=== PATIENT | female | born 1975 | race Caucasian/White ===

== ENCOUNTER 2016-07-31 20:46 | Emergency (ER) | payer OTHER ==
[2016-07-31 21:17] LABS: BASO # 0.1 K/mm3 (0.0-0.2); BASO % 1.3 % (0.0-1.0); EOS # 0.1 K/mm3 (0.0-0.50); EOS % 2.4 % (0.0-3.0); LARGE UNSTAINED CELL # 0.1 K/mm3 (0.0-0.4); LYMPH % 36.5 % (24.0-44.0); MEAN CORPUSCULAR HEMOGLOBIN 30.8 pg (27.0-33.0); MEAN CORPUSCULAR HGB CONC 32.7 g/dl (32.0-36.5); MEAN CORPUSCULAR VOLUME 94.1 fl (80.0-96.0); MONO # 0.2 K/mm3 (0.0-0.8); MONO % 4.3 % (0.0-5.0); NEUTROPHILS # 2.8 K/mm3 (1.8-7.7); NEUTROPHILS % 53.5 % (36.0-66.0); PLATELET COUNT, AUTOMATED 229 k/mm3 (150-450); RED CELL DISTRIBUTION WIDTH 15.7 % (11.5-14.5); WHITE BLOOD COUNT 5.2 K/mm3 (4.0-10.0)
[2016-07-31] MEDS ORDERED: ONDANSETRON 4MG/2ML VIAL (J2405) As Ordered ONE (21:43)
[2016-07-31 21:49] LABS: ALBUMIN/GLOBULIN RATIO 1.05 (1.00-1.93); ALKALINE PHOSPHATASE 96 U/L (45-117); ALT/SGPT 70 U/L (12-78); ANION GAP 8 MEQ/L (8-16); AST/SGOT 35 U/L (15-37); BILIRUBIN,DIRECT < 0.1 MG/DL (0.0-0.2); BILIRUBIN,TOTAL 0.2 MG/DL (0.2-1.0); BLOOD UREA NITROGEN 5 MG/DL (7-18); CALCIUM LEVEL 8.6 MG/DL (8.5-10.1); CARBON DIOXIDE LEVEL 27 MEQ/L (21-32); CHLORIDE LEVEL 110 MEQ/L (98-107); CREATININE FOR GFR 0.73 MG/DL (0.55-1.02); GLOMERULAR FILTRATION RATE > 60.0 (>58); GLUCOSE, FASTING 90 MG/DL (70-105); POTASSIUM SERUM 3.7 MEQ/L (3.5-5.1); SODIUM LEVEL 145 MEQ/L (136-145); TOTAL PROTEIN 7.8 GM/DL (6.4-8.2)
[2016-07-31] MEDS ORDERED: LORazepam 2 MG/ML VIAL (J2060) As Ordered ONE (21:58)
[2016-07-31] MEDS ORDERED: levETIRAcetam 500 MG/5 ML VIAL (KEPPRA IV)(J1953) As Ordered ONE (21:58)
[2016-07-31] MEDS ORDERED: KETOROLAC 30 MG/ML VIAL (J1885) As Ordered ONE (21:59)
--- NOTE | 2016-07-31 22:20 | REPUSA ---
HISTORY: Trauma TECHNIQUE: -CT head: Axial CT -CT C-spine: Contiguous noncontrast transaxial 2.[address] images were obtained through the cervical sp ine. Reconstructions were then created in the axial plane at 1.25 mm from which reformations were gen erated in the coronal and sagittal planes. COMPARISON: None FINDINGS: CT head: No acute intracranial hemorrhage or evidence of acute transcortical ischemia. No intra-axial or extra ction fluid collection, subfalcine herniation, midline shift, or hydrocephalus. The posterior fossa and brainstem are within normal limits. The osseous structures are intact. The pa ranasal sinuses, mastoid air cells, orbital compartments, and extra cranial soft tissues are unremark able. CT C-spine: No acute fracture, dislocation, or suspicious lesion. No evidence of significant arthritis and alignment is maintained without spondylolisthesis. There are no significant disc herniations or evidence of canal stenosis. The foramina, vertebral body, and dis c space heights are preserved. Odontoid process is intact. The neck soft tissues and airways are unremarkable with no hematoma or swelling. IMPRESSION: No acute intracranial or C-spine injury.
--- NOTE | 2016-08-01 00:41 | EDDOCDS ---
Physician Documentation [facility] Name: Genia Arita Age: 40 yrs Sex: Female : 1975 Arrival Date: 07/31/2016 Time: 20:46 Bed 3 Private MD: Disposition: 07/31/16 23:59 Discharged to Home/Self Care. Impression: Epilepsy and recurrent seizures, Fall (on) (from) unspecified stairs and steps. - Condition is Stable. - Prescriptions for Keppra 500 mg Oral Tablet - take 1 tablet by ORAL route every 12 hours; 20 tablet. - Medication Reconciliation, Local Pharmacy Hours form. - Follow up: Abbie Jack MD; When: Call to arrange an appointment; Reason: Continuance of care. - Problem is chronic. - Symptoms are unchanged. Historical: - Allergies: Cipro PO; Codeine Sulfate; SULFA (SULFONAMIDES); - Home Meds: 1. none - PMHx: Migraine Headaches; Seizure Disorder; - PSHx: Gall Bladder Removal; - Social history: Smoking status: Patient uses tobacco products, current every day smoker. No barriers to communication noted, The patient speaks fluent Macedonian, Speaks appropriately for age. - Family history: Not pertinent. - : The pt / caregiver states he / she is not on anticoagulants. Home medication list is obtained from. - Exposure Risk Screening:: None identified. ADMITTED ATTORNEYS: 07/31 20:51 LMP 07/21/2016 dsf Vital Signs: 20:53 BP 147 / 104 (auto/); dsf 20:54 BP 141 / 92 (auto/); dsf 20:54 Pulse 116 MON; Pulse Ox 96% ; dsf 20:55 BP 141 / 92 LA Supine (auto/reg); Pulse 103 MON; Resp 22 S; Temp 98.2(TE); Pulse Ox 98% cln on R/A; Weight 68.04 kg / 150 lbs (R); Height 5 ft. 0 in. (152.40 cm) (R); Pain 7/10; 20:55 Pulse 119 MON; Pulse Ox 92% ; dsf 21:00 BP 96 / 66 (auto/); dsf 21:01 Pulse 93 MON; Pulse Ox 97% ; dsf 21:15 BP 117 / 75 (auto/); dsf 21:16 Pulse 90 MON; Pulse Ox 98% ; dsf 21:45 BP 125 / 88 (auto/); dsf 21:46 Pulse 113 MON; Pulse Ox 93% ; dsf 22:00 BP 114 / 77 (auto/); dsf 22:01 Pulse 88 MON; Pulse Ox 97% ; dsf 22:15 BP 99 / 63 (auto/); dsf 22:15 Pulse 106 MON; Pulse Ox 96% ; dsf 22:30 BP 107 / 69 (auto/); dsf 22:31 Pulse 90 MON; Pulse Ox 99% ; dsf 22:57 BP 86 / 53 (auto/); dsf 22:58 Pulse 74 MON; Pulse Ox 95% ; dsf 23:07 BP 90 / 53 (auto/); dsf 23:08 Pulse 72 MON; Pulse Ox 97% ; dsf 23:12 BP 90 / 54 (auto/); dsf 23:12 Pulse 77 MON; Pulse Ox 96% ; dsf 08/01 00:21 BP 88 / 60; Pulse 75; Resp 18; Temp 96.9(TE); Pulse Ox 98% on R/A; shyam 00:32 BP 98 / 61; shyam 07/31 20:55 Body Mass Index 29.29 (68.04 kg, 152.40 cm) cln 07/31 23:07 Dr. Farrell notified of BP dsf 08/01 00:21 RN aware of BP. PT is sounds asleep on stretcher laying on right side shyam MDM: 07/31 20:59 Pug Mill Operator/Pulse Ox/q 15 min VS ordered. fg 20:59 IV Saline Lock ordered. fg 20:59 Oxygen at 4L/Min NC or Home dosage ordered. fg 20:59 Rhythm Strip to chart ordered. fg 21:00 Acetaminophen Level Ordered. EDMS 21:00 CBC with Diff Ordered. EDMS 21:00 Drug Eval Toxicology ED Only Ordered. EDMS 21:00 Liver Profile Ordered. EDMS 21:00 MED Profile Ordered. EDMS 21:00 Salicylate Level Ordered. EDMS 21:00 Thyroid Stimulating Hormone Ordered. EDMS 21:00 Urinalysis Ordered. EDMS 21:00 Chest, 1 View Ordered. EDMS 21:00 ECG WITH READING ER PHYS+CARDIAG ordered. EDMS 21:04 CT Head Without Contrast Ordered. EDMS 21:04 CT Spine,Cervical W/o Contrast Ordered. EDMS 21:07 ETHYL ALCOHOL (ETHANOL) Ordered. EDMS 21:47 levETIRAcetam (20mg/kg) 1000 mg IVPB at 400 mL/hr once over 15 mins; dilute in 100mL NS fg or D5W ordered. 21:47 LORazepam 0.5 mg IVP once ordered. fg 21:47 Ondansetron 4 mg IVP once ordered. fg 21:48 ketorolac 30 mg IVP once ordered. fg 21:48 Elbow, (AP\E\Lat) Ordered. EDMS 21:48 Shoulder (1 View) Ordered. EDMS 21:48 Spine. Lumbosacral, Complete Ordered. EDMS 22:39 Financial registration complete. zo 22:50 [facility] [place] Agreement was scanned into [employer] and attached to record. zo 23:11 NS 0.9% 1000 ml IV at bolus once ordered. fg Administered Medications: 21:48 Drug: Ondansetron 4 mg [ondansetron HCl 2 mg/mL intravenous solution (2 mL)] Route: cf2 IVP; Site: left antecubital; 22:08 Drug: levETIRAcetam (20mg/kg) 1000 mg [levetiracetam 500 mg/5 mL intravenous solution] dsf Route: IVPB; Rate: 400 mL/hr; Infused Over: 15 mins; Site: right hand; 22:34 Follow up: IV Status: Completed infusion; IV Intake: 100ml dsf 22:08 Drug: LORazepam 0.5 mg [lorazepam 2 mg/mL injection solution (0.25 mL)] Route: IVP; dsf Site: right hand; 22:08 Drug: ketorolac 30 mg [ketorolac 30 mg/mL (1 mL) injection solution (1 mL)] Route: IVP; dsf Site: right hand; 23:14 Drug: NS 0.9% 1000 ml [sodium chloride 0.9 % injection solution] Route: IV; Rate: dsf bolus; Site: right hand; 08/01 00:39 Follow up: IV Status: Infusion discontinued; IV Intake: 800ml dsf Signatures: Dispatcher [employer] EDMS Palak Lee Desiree, RN RN dsf Yudy Farrell MD MD Hilaria Nino RN cf2 The chart was reviewed and I authenticate all verbal orders and agree with the evaluation and treatment provided.Corrections: (The following items were deleted from the chart) 07/31 21:02 20:59 Accucheck ordered. fg dsf 21: 21:03 ETHYL ALCOHOL (ETHANOL)+LAB ordered. EDMS EDMS Attachments: 22:50 [facility] Payment Agreement zo MTDD
--- NOTE | 2016-08-01 00:41 | EDDOCDS ---
Nurse's Notes [facility] Name: Genia Arita Age: 40 yrs Sex: Female : 1975 Arrival Date: 07/31/2016 Time: 20:46 Bed 3 Private MD: Diagnosis: Epilepsy and recurrent seizures;Fall (on) (from) unspecified stairs and steps Presentation: 07/31 20:48 Presenting complaint: EMS states: son found pt unconscious laying on the patio outside. dsf According to son pt was tensing up after moved inside and was crying. ?seizure disorder. pt was incontinent of urine. c-collar in place. FSBS 86. Suicide/Homicide risk assessment- the patient denies having any suicidal and/or homicidal ideations and does not present with any other emotional, behavioral or mental health complaints. Status: Patient is not a reactor service operator or dependent. Transition of care: patient was not received from another setting of care. 20:48 Acuity: MESERET Level 3 dsf 20:48 Method Of Arrival: Ambulance dsf 20:48 Adult Sepsis Screening: Patient has new or worsening altered mentation (1 point). dsf Patient's respiratory rate is less than 22. Systolic blood pressure is greater than 100. Patient has a qSOFA score of 1- Negative Sepsis Screen. Triage Assessment: 20:51 General: Appears distressed, Behavior is crying. Pain: Location: all over body Pain dsf currently is 7 out of 10 on a pain scale. Quality of pain is described as sore. HIV screening NA for this visit Offered previously. Neurological: Level of Consciousness is awake, Oriented to person. EENT: eyes puffy. Cardiovascular: Capillary refill < 3 seconds Heart tones S1 S2 present Rhythm is sinus tachycardia No ectopy. Respiratory: Airway is patent Respiratory effort is even, unlabored, Respiratory pattern is regular, Breath sounds are clear bilaterally. GI: Abdomen is non- distended Bowel sounds present X 4 quads. Abd is soft and non tender X 4 quads. Derm: Skin is face flushed. 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 none - PMHx: Migraine Headaches; Seizure Disorder; - PSHx: Gall Bladder Removal; - Social history: Smoking status: Patient uses tobacco products, current every day smoker. No barriers to communication noted, The patient speaks fluent Portuguese, Speaks appropriately for age. - Family history: Not pertinent. - : The pt / caregiver states he / she is not on anticoagulants. Home medication list is obtained from. - Exposure Risk Screening:: None identified. Screenin/12 00:37 Screening information is obtained from the patient. Fall risk: No risks identified. dsf Assistance ADL's: requires no assistance with activities of daily living. Abuse/DV Screen: The patient / caregiver reports he/she is: not in a situation that causes fear, pain or injury. Nutritional screening: No deficits noted. Advance Directives: Currently, there is no health care proxy. home support is adequate. Assessment: 07/31 20:51 General: see triage nursing assessment . dsf 21:07 General: Appears distressed, Behavior is crying. Pain: Location: all over body. dsf Neurological: Level of Consciousness is awake, alert. Cardiovascular: Capillary refill < 3 seconds Rhythm is sinus rhythm No ectopy. Respiratory: Airway is patent Respiratory effort is even, unlabored, Respiratory pattern is regular, symmetrical. Derm: Skin is pink, warm & dry. 22:08 General: Behavior is crying. Neurological: Level of Consciousness is awake. dsf Cardiovascular: Rhythm is sinus rhythm No ectopy. Respiratory: Airway is patent Respiratory effort is even, unlabored, Respiratory pattern is regular, symmetrical. Derm: Skin is pink, warm & dry. face flushed. 23:15 Adult Sepsis Screening: The patient does not have new or worsening altered mentation. dsf Patient's respiratory rate is less than 22. Systolic blood pressure is greater than 100. Patient has a qSOFA score of 0- Negative Sepsis Screen. General: Appears to be sleeping. Cardiovascular: Rhythm is sinus rhythm No ectopy. Respiratory: Airway is patent Respiratory effort is even, unlabored, Respiratory pattern is regular, symmetrical. Derm: Skin is pink, warm & dry. 08/01 00:37 General: Appears in no apparent distress, Behavior is appropriate for age, sleepy . dsf Neurological: Level of Consciousness is awake, alert. Cardiovascular: Capillary refill < 3 seconds Rhythm is sinus rhythm No ectopy. Respiratory: Airway is patent Respiratory effort is even, unlabored, Respiratory pattern is regular, symmetrical. Derm: Skin is pink, warm & dry. Vital Signs: 07/31 20:53 BP 147 / 104 (auto/); dsf 20:54 BP 141 / 92 (auto/); dsf 20:54 Pulse 116 MON; Pulse Ox 96% ; dsf 20:55 BP 141 / 92 LA Supine (auto/reg); Pulse 103 MON; Resp 22 S; Temp 98.2(TE); Pulse Ox 98% cln on R/A; Weight 68.04 kg (R); Height 5 ft. 0 in. (152.40 cm) (R); Pain 7/; 20:55 Pulse 119 MON; Pulse Ox 92% ; dsf 21:00 BP 96 / 66 (auto/); dsf 21:01 Pulse 93 MON; Pulse Ox 97% ; dsf 21:15 BP 117 / 75 (auto/); dsf 21:16 Pulse 90 MON; Pulse Ox 98% ; dsf 21:45 BP 125 / 88 (auto/); dsf 21:46 Pulse 113 MON; Pulse Ox 93% ; dsf 22:00 BP 114 / 77 (auto/); dsf 22:01 Pulse 88 MON; Pulse Ox 97% ; dsf 22:15 BP 99 / 63 (auto/); dsf 22:15 Pulse 106 MON; Pulse Ox 96% ; dsf 22:30 BP 107 / 69 (auto/); dsf 22:31 Pulse 90 MON; Pulse Ox 99% ; dsf 22:57 BP 86 / 53 (auto/); dsf 22:58 Pulse 74 MON; Pulse Ox 95% ; dsf 23:07 BP 90 / 53 (auto/); dsf 23:08 Pulse 72 MON; Pulse Ox 97% ; dsf 23:12 BP 90 / 54 (auto/); dsf 23:12 Pulse 77 MON; Pulse Ox 96% ; dsf 08/01 00:21 BP 88 / 60; Pulse 75; Resp 18; Temp 96.9(TE); Pulse Ox 98% on R/A; shyam 00:32 BP 98 / 61; shyam 07/31 20:55 Body Mass Index 29.29 (68.04 kg, 152.40 cm) cln 07/31 23:07 Dr. Farrell notified of BP dsf 08/01 00:21 RN aware of BP. PT is sounds asleep on stretcher laying on right side shyam Vitals: 07/31 20:51 Log In Time N/A - ambulance arrival. dsf ED Course: 20:47 Patient visited by Mary Lim, Lamp Shade Joiner. ml3 20:47 Patient moved to Waiting ml3 20:47 Patient moved to 3 ml3 20:50 Triage Initiated dsf 20:56 Patient visited by Myrna Webber PCA. cln 20:56 Pt greeted and oriented to ED. Patient advised of names of staff involved in care, cln location of call hassan, wait times and NPO status. Patient has correct armband on for positive identification. Placed in gown. Bed in low position. Side rails up X2. Seizure precautions initiated. 20:58 Yudy Farrell MD is Attending Physician. fg 20:58 Patient visited by Yudy Farrell MD. fg 21:06 Acetaminophen Level Sent. dsf 21:06 CBC with Diff Sent. dsf 21:07 Liver Profile Sent. dsf 21:07 MED Profile Sent. dsf 21:07 Salicylate Level Sent. dsf 21:07 Thyroid Stimulating Hormone Sent. dsf 21:07 Inserted saline lock: 22 gauge in right hand The patient tolerated the procedure well. dsf 21:09 Patient visited by Ashley Oropeza RN. dsf 21:18 EKG done. (by ED staff). Reviewed by Yudy Farrell MD. cln 21:19 Patient visited by Myrna Webber PCA. cln 22:01 Patient visited by Hilaria Nino,ELICEO. cf2 22:09 Patient visited by Ashley Oropeza RN. dsf 22:38 CT Head Without Contrast Returned. EDMS 22:38 CT Spine,Cervical W/o Contrast Returned. EDMS 22:50 [facility] [place] was scanned into [employer] and attached to record. zo 22:51 Hilaria Nino,ELICEO is Primary Nurse. cf2 22:57 Patient visited by Hilaria Nino RN. cf2 23:15 Patient visited by Ashley Oropeza,ELICEO. dsf 23:58 Abbie Jack MD is Referral Physician. fg 08/01 00:32 Patient visited by Katie Fields PCA. shyam 00:37 The patient / caregiver is instructed regarding the plan of care and ED course. dsf 00:37 Discontinued lock intact, bleeding controlled, pressure dressing applied, No dsf redness/swelling at site. No procedures done that require assistance. Administered Medications: 07/31 21:48 Drug: Ondansetron 4 mg [ondansetron HCl 2 mg/mL intravenous solution (2 mL)] Route: cf2 IVP; Site: left antecubital; 22:08 Drug: levETIRAcetam (20mg/kg) 1000 mg [levetiracetam 500 mg/5 mL intravenous solution] dsf Route: IVPB; Rate: 400 mL/hr; Infused Over: 15 mins; Site: right hand; 22:34 Follow up: IV Status: Completed infusion; IV Intake: 100ml dsf 22:08 Drug: LORazepam 0.5 mg [lorazepam 2 mg/mL injection solution (0.25 mL)] Route: IVP; dsf Site: right hand; 22:08 Drug: ketorolac 30 mg [ketorolac 30 mg/mL (1 mL) injection solution (1 mL)] Route: IVP; dsf Site: right hand; 23:14 Drug: NS 0.9% 1000 ml [sodium chloride 0.9 % injection solution] Route: IV; Rate: dsf bolus; Site: right hand; 08/01 00:39 Follow up: IV Status: Infusion discontinued; IV Intake: 800ml dsf Intake: 07/31 22:34 IV: 100.00ml; Total: 100.00ml. dsf 08/01 00:39 IV: 800.00ml; Total: 900.00ml. dsf Order Results: Lab Order: Acetaminophen Level; SPEC'M 07/31/16 21:04 Test: ACETAMINOPHEN LEVEL; Value: < 2.0; Range: 10.0-30.0; Abnormal: Below low normal; Units: UG/ML; Status: F Lab Order: CBC with Diff; SPEC'M 07/31/16 21:04 Test: WHITE BLOOD COUNT; Value: 5.2; Range: 4.0-10.0; Units: K/mm3; Status: F Test: RED BLOOD COUNT; Value: 4.43; Range: 4.00-5.40; Units: M/mm3; Status: F Test: HEMOGLOBIN; Value: 13.6; Range: 12.0-16.0; Units: g/dl; Status: F Test: HEMATOCRIT; Value: 41.7; Range: 36.0-47.0; Units: %; Status: F Test: MEAN CORPUSCULAR VOLUME; Value: 94.1; Range: 80.0-96.0; Units: fl; Status: F Test: MEAN CORPUSCULAR HEMOGLOBIN; Value: 30.8; Range: 27.0-33.0; Units: pg; Status: F Test: MEAN CORPUSCULAR HGB CONC; Value: 32.7; Range: 32.0-36.5; Units: g/dl; Status: F Test: RED CELL DISTRIBUTION WIDTH; Value: 15.7; Range: 11.5-14.5; Abnormal: Above high normal; Units: %; Status: F Test: PLATELET COUNT, AUTOMATED; Value: 229; Range: 150-450; Units: k/mm3; Status: F Test: NEUTROPHILS %; Value: 53.5; Range: 36.0-66.0; Units: %; Status: F Test: LYMPH %; Value: 36.5; Range: 24.0-44.0; Units: %; Status: F Test: MONO %; Value: 4.3; Range: 0.0-5.0; Units: %; Status: F Test: EOS %; Value: 2.4; Range: 0.0-3.0; Units: %; Status: F Test: BASO %; Value: 1.3; Range: 0.0-1.0; Abnormal: Above high normal; Units: %; Status: F Test: LARGE UNSTAINED CELL %; Value: 2.0; Range: 0.0-4.0; Units: %; Status: F Test: NEUTROPHILS #; Value: 2.8; Range: 1.8-7.7; Units: K/mm3; Status: F Test: LYMPH #; Value: 2.0; Range: 1.5-4.5; Units: K/mm3; Status: F Test: MONO #; Value: 0.2; Range: 0.0-0.8; Units: K/mm3; Status: F Test: EOS #; Value: 0.1; Range: 0.0-0.50; Units: K/mm3; Status: F Test: BASO #; Value: 0.1; Range: 0.0-0.2; Units: K/mm3; Status: F Test: LARGE UNSTAINED CELL #; Value: 0.1; Range: 0.0-0.4; Units: K/mm3; Status: F Lab Order: Liver Profile; SPEC'M 07/31/16 21:04 Test: AST/SGOT; Value: 35; Range: 15-37; Units: U/L; Status: F Test: ALT/SGPT; Value: 70; Range: 12-78; Units: U/L; Status: F Test: ALKALINE PHOSPHATASE; Value: 96; Range: 45-117; Units: U/L; Status: F Test: BILIRUBIN,TOTAL; Value: 0.2; Range: 0.2-1.0; Units: MG/DL; Status: F Test: BILIRUBIN,DIRECT; Value: < 0.1; Range: 0.0-0.2; Units: MG/DL; Status: F Test: TOTAL PROTEIN; Value: 7.8; Range: 6.4-8.2; Units: GM/DL; Status: F Test: ALBUMIN; Value: 4.0; Range: 3.2-5.2; Units: GM/DL; Status: F Test: ALBUMIN/GLOBULIN RATIO; Value: 1.05; Range: 1.00-1.93; Status: F Lab Order: MED Profile; SPEC'M 07/31/16 21:04 Test: GLUCOSE, FASTING; Value: 90; Range: 70-105; Units: MG/DL; Status: F Test: BLOOD UREA NITROGEN; Value: 5; Range: 7-18; Abnormal: Below low normal; Units: MG/DL; Status: F Test: CREATININE FOR GFR; Value: 0.73; Range: 0.55-1.02; Units: MG/DL; Status: F Test: GLOMERULAR FILTRATION RATE; Value: > 60.0; Range: >58; Status: F Test: SODIUM LEVEL; Value: 145; Range: 136-145; Units: MEQ/L; Status: F Test: POTASSIUM SERUM; Value: 3.7; Range: 3.5-5.1; Units: MEQ/L; Status: F Test: CHLORIDE LEVEL; Value: 110; Range: 98-107; Abnormal: Above high normal; Units: MEQ/L; Status: F Test: CARBON DIOXIDE LEVEL; Value: 27; Range: 21-32; Units: MEQ/L; Status: F Test: ANION GAP; Value: 8; Range: 8-16; Units: MEQ/L; Status: F Test: CALCIUM LEVEL; Value: 8.6; Range: 8.5-10.1; Units: MG/DL; Status: F Test Note: ; Units are mL/min/1.73 m2 Chronic Kidney Disease Staging per NKF: Stage I & II GFR >=60 Normal to Mildly Decreased Stage III GFR 30-59 Moderately Decreased Stage IV GFR 15-29 Severely Decreased Stage V GFR <15 Very Little GFR Left ESRD GFR <15 on INSPECT[employer]CU[employer] Lab Order: Salicylate Level; SPEC'M 07/31/16 21:04 Test: SALICYLATE LEVEL; Value: 2.8; Range: 5.0-30.0; Abnormal: Below low normal; Units: MG/DL; Status: F Lab Order: Thyroid Stimulating Hormone; SPEC'M 07/31/16 21:04 Test: THYROID STIMULATING HORMONE; Value: 2.410; Range: 0.358-3.740; Units: uIU/ML; Status: F Lab Order: ETHYL ALCOHOL (ETHANOL); SPEC'M 07/31/16 21:04 Test: ETHYL ALCOHOL (ETHANOL); Value: 0.194; Range: 0.000-0.010; Abnormal: Above high normal; Units: %; Status: F Radiology Order: CT Head Without Contrast Test: CT Head Without Contrast REASON FOR EXAMINATION: fall, ams; ; HISTORY: Trauma; TECHNIQUE:; -CT head: Axial CT; -CT C-spine: Contiguous noncontrast transaxial 2.[address] images were obtained through the cervical sp; ine. Reconstructions were then created in the axial plane at 1.25 mm from which reformations were gen; erated in the coronal and sagittal planes.; COMPARISON: None; FINDINGS:; CT head:; No acute intracranial hemorrhage or evidence of acute transcortical ischemia. No intra-axial or extra; ction fluid collection, subfalcine herniation, midline shift, or hydrocephalus.; The posterior fossa and brainstem are within normal limits. The osseous structures are intact. The pa; ranasal sinuses, mastoid air cells, orbital compartments, and extra cranial soft tissues are unremark; able.; CT C-spine:; No acute fracture, dislocation, or suspicious lesion.; No evidence of significant arthritis and alignment is maintained without spondylolisthesis. There are; no significant disc herniations or evidence of canal stenosis. The foramina, vertebral body, and dis; c space heights are preserved. Odontoid process is intact.; The neck soft tissues and airways are unremarkable with no hematoma or swelling.; ; IMPRESSION:; No acute intracranial or C-spine injury.; ; Radiology Order: CT Spine,Cervical W/o Contrast Test: CT Spine,Cervical W/o Contrast REASON FOR EXAMINATION: fall; ; HISTORY: Trauma; TECHNIQUE:; -CT head: Axial CT; -CT C-spine: Contiguous noncontrast transaxial 2.[address] images were obtained through the cervical sp; ine. Reconstructions were then created in the axial plane at 1.25 mm from which reformations were gen; erated in the coronal and sagittal planes.; COMPARISON: None; FINDINGS:; CT head:; No acute intracranial hemorrhage or evidence of acute transcortical ischemia. No intra-axial or extra; ction fluid collection, subfalcine herniation, midline shift, or hydrocephalus.; The posterior fossa and brainstem are within normal limits. The osseous structures are intact. The pa; ranasal sinuses, mastoid air cells, orbital compartments, and extra cranial soft tissues are unremark; able.; CT C-spine:; No acute fracture, dislocation, or suspicious lesion.; No evidence of significant arthritis and alignment is maintained without spondylolisthesis. There are; no significant disc herniations or evidence of canal stenosis. The foramina, vertebral body, and dis; c space heights are preserved. Odontoid process is intact.; The neck soft tissues and airways are unremarkable with no hematoma or swelling.; ; IMPRESSION:; No acute intracranial or C-spine injury.; ; Outcome: 07/31 23:59 Discharge ordered by Provider. fg 08/01 00:37 Discharge Assessment: Patient awake, alert and oriented x 3. No cognitive and/or dsf functional deficits noted. Patient verbalized understanding of disposition instructions. patient administered narcotics - no. The following High Risk Discharge criteria are identified: None. Discharged to home via wheelchair, with son. Condition: stable. Discharge instructions given to patient, son Instructed on discharge instructions, follow up and referral plans. medication usage, Demonstrated understanding of instructions, medications, Pt was receptive of discharge instructions/ teaching. Prescriptions given X 1. CT Study completed. Property sent home with patient. 00:40 Patient left the ED. dsf Signatures: Dispatcher [employer] EDMS Mary Lim, Lamp Shade Joiner Unit ml3 Palak Lee Destiny, GIS PROGRAMMER GIS PROGRAMMER Ashley Jefferson,RN RN dsf Yudy Farrell MD MD fg Nichols, Crystal, GIS PROGRAMMER GIS PROGRAMMER Hilaria Duque,RN RN cf2 YASHIRA
--- NOTE | 2016-08-01 08:05 | REP ---
Clinical: Trauma/fall with back pain . Technique: AP, lateral, bilateral oblique, and coned-down views. Findings: Alignment and lordosis is maintained. The vertebral bodies including transverse process and spinous processes are intact and normal for age. There is no evidence for acute fracture / compression injury or subluxation. No evidence for spondylolysis or spondylolisthesis. Impression: Mild age-related changes. No acute fracture / compression injury or subluxation. Signed by Prudencio Olivier MD 08/01/2016 07:57 A
--- NOTE | 2016-08-01 08:07 | REP ---
Clinical: Chest pain . Comparison: None . Findings: The mediastinum and cardiac silhouette are stable and within normal limits for portable technique. The lung crane are clear without acute consolidation, effusion, or pneumothorax. Skeletal structures are intact. Impression: Normal portable chest x-ray Signed by Prudencio Olivier MD 08/01/2016 07:58 A
--- NOTE | 2016-08-01 08:09 | REP ---
Clinical: Pain . Technique: Single AP view of the right shoulder. Findings: No acute fracture or dislocation identified. The acromioclavicular and glenohumeral joints are intact in the single AP projection. No periarticular calcifications or degenerative changes are appreciated. Surrounding soft tissues are unremarkable. Impression: No obvious acute fracture dislocation. Signed by Prudencio Olivier MD 08/01/2016 08:00 A
--- NOTE | 2016-08-01 08:11 | REP ---
Clinical: Pain. Technique: AP and lateral views of the right elbow. Findings: No acute fracture dislocation. Skeletal structures and joint spaces are normal. Surrounding soft tissues are unremarkable. Impression: No acute fracture or dislocation Signed by Prudencio Olivier MD 08/01/2016 08:02 A
--- NOTE | 2016-08-02 07:15 | ECGEPIP ---
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
--- NOTE | 2016-08-03 01:41 | EDDOCDS ---
Nurse's Notes [facility] Name: Kodak Arita Age: 40 yrs Sex: Female : 1975 Arrival Date: 07/31/2016 Time: 20:46 Bed 3 Private MD: Diagnosis: Epilepsy and recurrent seizures;Fall (on) (from) unspecified stairs and steps Presentation: 07/31 20:48 Presenting complaint: EMS states: son found pt unconscious laying on the patio outside. dsf According to son pt was tensing up after moved inside and was crying. ?seizure disorder. pt was incontinent of urine. c-collar in place. FSBS 86. Suicide/Homicide risk assessment- the patient denies having any suicidal and/or homicidal ideations and does not present with any other emotional, behavioral or mental health complaints. Status: Patient is not a nutrition services associate or dependent. Transition of care: patient was not received from another setting of care. 20:48 Acuity: MESERET Level 3 dsf 20:48 Method Of Arrival: Ambulance dsf 20:48 Adult Sepsis Screening: Patient has new or worsening altered mentation (1 point). dsf Patient's respiratory rate is less than 22. Systolic blood pressure is greater than 100. Patient has a qSOFA score of 1- Negative Sepsis Screen. Triage Assessment: 20:51 General: Appears distressed, Behavior is crying. Pain: Location: all over body Pain dsf currently is 7 out of 10 on a pain scale. Quality of pain is described as sore. HIV screening NA for this visit Offered previously. Neurological: Level of Consciousness is awake, Oriented to person. EENT: eyes puffy. Cardiovascular: Capillary refill < 3 seconds Heart tones S1 S2 present Rhythm is sinus tachycardia No ectopy. Respiratory: Airway is patent Respiratory effort is even, unlabored, Respiratory pattern is regular, Breath sounds are clear bilaterally. GI: Abdomen is non- distended Bowel sounds present X 4 quads. Abd is soft and non tender X 4 quads. Derm: Skin is face flushed. 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 none - PMHx: Migraine Headaches; Seizure Disorder; - PSHx: Gall Bladder Removal; - Social history: Smoking status: Patient uses tobacco products, current every day smoker. No barriers to communication noted, The patient speaks fluent Sudanese, Speaks appropriately for age. - Family history: Not pertinent. - : The pt / caregiver states he / she is not on anticoagulants. Home medication list is obtained from. - Exposure Risk Screening:: None identified. Screenin/12 00:37 Screening information is obtained from the patient. Fall risk: No risks identified. dsf Assistance ADL's: requires no assistance with activities of daily living. Abuse/DV Screen: The patient / caregiver reports he/she is: not in a situation that causes fear, pain or injury. Nutritional screening: No deficits noted. Advance Directives: Currently, there is no health care proxy. home support is adequate. Assessment: 07/31 20:51 General: see triage nursing assessment . dsf 21:07 General: Appears distressed, Behavior is crying. Pain: Location: all over body. dsf Neurological: Level of Consciousness is awake, alert. Cardiovascular: Capillary refill < 3 seconds Rhythm is sinus rhythm No ectopy. Respiratory: Airway is patent Respiratory effort is even, unlabored, Respiratory pattern is regular, symmetrical. Derm: Skin is pink, warm & dry. 22:08 General: Behavior is crying. Neurological: Level of Consciousness is awake. dsf Cardiovascular: Rhythm is sinus rhythm No ectopy. Respiratory: Airway is patent Respiratory effort is even, unlabored, Respiratory pattern is regular, symmetrical. Derm: Skin is pink, warm & dry. face flushed. 23:15 Adult Sepsis Screening: The patient does not have new or worsening altered mentation. dsf Patient's respiratory rate is less than 22. Systolic blood pressure is greater than 100. Patient has a qSOFA score of 0- Negative Sepsis Screen. General: Appears to be sleeping. Cardiovascular: Rhythm is sinus rhythm No ectopy. Respiratory: Airway is patent Respiratory effort is even, unlabored, Respiratory pattern is regular, symmetrical. Derm: Skin is pink, warm & dry. 08/01 00:37 General: Appears in no apparent distress, Behavior is appropriate for age, sleepy . dsf Neurological: Level of Consciousness is awake, alert. Cardiovascular: Capillary refill < 3 seconds Rhythm is sinus rhythm No ectopy. Respiratory: Airway is patent Respiratory effort is even, unlabored, Respiratory pattern is regular, symmetrical. Derm: Skin is pink, warm & dry. Vital Signs: 07/31 20:53 BP 147 / 104 (auto/); dsf 20:54 BP 141 / 92 (auto/); dsf 20:54 Pulse 116 MON; Pulse Ox 96% ; dsf 20:55 BP 141 / 92 LA Supine (auto/reg); Pulse 103 MON; Resp 22 S; Temp 98.2(TE); Pulse Ox 98% cln on R/A; Weight 68.04 kg (R); Height 5 ft. 0 in. (152.40 cm) (R); Pain 7/; 20:55 Pulse 119 MON; Pulse Ox 92% ; dsf 21:00 BP 96 / 66 (auto/); dsf 21:01 Pulse 93 MON; Pulse Ox 97% ; dsf 21:15 BP 117 / 75 (auto/); dsf 21:16 Pulse 90 MON; Pulse Ox 98% ; dsf 21:45 BP 125 / 88 (auto/); dsf 21:46 Pulse 113 MON; Pulse Ox 93% ; dsf 22:00 BP 114 / 77 (auto/); dsf 22:01 Pulse 88 MON; Pulse Ox 97% ; dsf 22:15 BP 99 / 63 (auto/); dsf 22:15 Pulse 106 MON; Pulse Ox 96% ; dsf 22:30 BP 107 / 69 (auto/); dsf 22:31 Pulse 90 MON; Pulse Ox 99% ; dsf 22:57 BP 86 / 53 (auto/); dsf 22:58 Pulse 74 MON; Pulse Ox 95% ; dsf 23:07 BP 90 / 53 (auto/); dsf 23:08 Pulse 72 MON; Pulse Ox 97% ; dsf 23:12 BP 90 / 54 (auto/); dsf 23:12 Pulse 77 MON; Pulse Ox 96% ; dsf 08/01 00:21 BP 88 / 60; Pulse 75; Resp 18; Temp 96.9(TE); Pulse Ox 98% on R/A; shyam 00:32 BP 98 / 61; shyam 07/31 20:55 Body Mass Index 29.29 (68.04 kg, 152.40 cm) cln 07/31 23:07 Dr. Farrell notified of BP dsf 08/01 00:21 RN aware of BP. PT is sounds asleep on stretcher laying on right side shyam Vitals: 07/31 20:51 Log In Time N/A - ambulance arrival. dsf ED Course: 20:47 Patient visited by Mary Lim, Instrument Sterilizer. ml3 20:47 Patient moved to Waiting ml3 20:47 Patient moved to 3 ml3 20:50 Triage Initiated dsf 20:56 Patient visited by Myrna Webber PCA. cln 20:56 Pt greeted and oriented to ED. Patient advised of names of staff involved in care, cln location of call hassan, wait times and NPO status. Patient has correct armband on for positive identification. Placed in gown. Bed in low position. Side rails up X2. Seizure precautions initiated. 20:58 Yudy Farrell MD is Attending Physician. fg 20:58 Patient visited by Yudy Farrell MD. fg 21:06 Acetaminophen Level Sent. dsf 21:06 CBC with Diff Sent. dsf 21:07 Liver Profile Sent. dsf 21:07 MED Profile Sent. dsf 21:07 Salicylate Level Sent. dsf 21:07 Thyroid Stimulating Hormone Sent. dsf 21:07 Inserted saline lock: 22 gauge in right hand The patient tolerated the procedure well. dsf 21:09 Patient visited by Ashley Oropeza RN. dsf 21:18 EKG done. (by ED staff). Reviewed by Yudy Farrell MD. cln 21:19 Patient visited by Myrna Webber PCA. cln 22:01 Patient visited by Hilaria Nino,ELICEO. cf2 22:09 Patient visited by Ashley Oropeza RN. dsf 22:38 CT Head Without Contrast Returned. EDMS 22:38 CT Spine,Cervical W/o Contrast Returned. EDMS 22:50 [facility] [place] Payment Agreement was scanned into [employer] and attached to record. zo 22:51 Hilaria Nino,ELICEO is Primary Nurse. cf2 22:57 Patient visited by Hilaria Nino RN. cf2 23:15 Patient visited by Ashley Oropeza,ELICEO. dsf 23:58 Abbie Jack MD is Referral Physician. fg 08/01 00:32 Patient visited by Katie Fields PCA. shyam 00:37 The patient / caregiver is instructed regarding the plan of care and ED course. dsf 00:37 Discontinued lock intact, bleeding controlled, pressure dressing applied, No dsf redness/swelling at site. No procedures done that require assistance. 08:33 Spine. Lumbosacral, Complete Returned. EDMS 08:33 Chest, 1 View Returned. EDMS 08:33 Shoulder (1 View) Returned. EDMS 08:33 Elbow, (AP\E\Lat) Returned. EDMS 11:06 T-Sheet-- Draft Copy was scanned into [employer] and attached to record. gb 11:06 ECG/EKG was scanned into [employer] and attached to record. gb 11:07 Radiology Report was scanned into [employer] and attached to record. gb 11:07 PCR was scanned into [employer] and attached to record. gb 01 07:41 EKG-ADULT Returned. EDMS Administered Medications: 07/31 21:48 Drug: Ondansetron 4 mg [ondansetron HCl 2 mg/mL intravenous solution (2 mL)] Route: cf2 IVP; Site: left antecubital; 22:08 Drug: levETIRAcetam (20mg/kg) 1000 mg [levetiracetam 500 mg/5 mL intravenous solution] dsf Route: IVPB; Rate: 400 mL/hr; Infused Over: 15 mins; Site: right hand; 22:34 Follow up: IV Status: Completed infusion; IV Intake: 100ml dsf 22:08 Drug: LORazepam 0.5 mg [lorazepam 2 mg/mL injection solution (0.25 mL)] Route: IVP; dsf Site: right hand; 22:08 Drug: ketorolac 30 mg [ketorolac 30 mg/mL (1 mL) injection solution (1 mL)] Route: IVP; dsf Site: right hand; 23:14 Drug: NS 0.9% 1000 ml [sodium chloride 0.9 % injection solution] Route: IV; Rate: dsf bolus; Site: right hand; 08/01 00:39 Follow up: IV Status: Infusion discontinued; IV Intake: 800ml dsf Intake: 07/31 22:34 IV: 100.00ml; Total: 100.00ml. dsf 08/01 00:39 IV: 800.00ml; Total: 900.00ml. dsf Order Results: Lab Order: Acetaminophen Level; SPEC'M 07/31/16 21:04 Test: ACETAMINOPHEN LEVEL; Value: < 2.0; Range: 10.0-30.0; Abnormal: Below low normal; Units: UG/ML; Status: F Lab Order: CBC with Diff; SPEC'M 07/31/16 21:04 Test: WHITE BLOOD COUNT; Value: 5.2; Range: 4.0-10.0; Units: K/mm3; Status: F Test: RED BLOOD COUNT; Value: 4.43; Range: 4.00-5.40; Units: M/mm3; Status: F Test: HEMOGLOBIN; Value: 13.6; Range: 12.0-16.0; Units: g/dl; Status: F Test: HEMATOCRIT; Value: 41.7; Range: 36.0-47.0; Units: %; Status: F Test: MEAN CORPUSCULAR VOLUME; Value: 94.1; Range: 80.0-96.0; Units: fl; Status: F Test: MEAN CORPUSCULAR HEMOGLOBIN; Value: 30.8; Range: 27.0-33.0; Units: pg; Status: F Test: MEAN CORPUSCULAR HGB CONC; Value: 32.7; Range: 32.0-36.5; Units: g/dl; Status: F Test: RED CELL DISTRIBUTION WIDTH; Value: 15.7; Range: 11.5-14.5; Abnormal: Above high normal; Units: %; Status: F Test: PLATELET COUNT, AUTOMATED; Value: 229; Range: 150-450; Units: k/mm3; Status: F Test: NEUTROPHILS %; Value: 53.5; Range: 36.0-66.0; Units: %; Status: F Test: LYMPH %; Value: 36.5; Range: 24.0-44.0; Units: %; Status: F Test: MONO %; Value: 4.3; Range: 0.0-5.0; Units: %; Status: F Test: EOS %; Value: 2.4; Range: 0.0-3.0; Units: %; Status: F Test: BASO %; Value: 1.3; Range: 0.0-1.0; Abnormal: Above high normal; Units: %; Status: F Test: LARGE UNSTAINED CELL %; Value: 2.0; Range: 0.0-4.0; Units: %; Status: F Test: NEUTROPHILS #; Value: 2.8; Range: 1.8-7.7; Units: K/mm3; Status: F Test: LYMPH #; Value: 2.0; Range: 1.5-4.5; Units: K/mm3; Status: F Test: MONO #; Value: 0.2; Range: 0.0-0.8; Units: K/mm3; Status: F Test: EOS #; Value: 0.1; Range: 0.0-0.50; Units: K/mm3; Status: F Test: BASO #; Value: 0.1; Range: 0.0-0.2; Units: K/mm3; Status: F Test: LARGE UNSTAINED CELL #; Value: 0.1; Range: 0.0-0.4; Units: K/mm3; Status: F Lab Order: Liver Profile; SPEC' 07/31/16 21:04 Test: AST/SGOT; Value: 35; Range: 15-37; Units: U/L; Status: F Test: ALT/SGPT; Value: 70; Range: 12-78; Units: U/L; Status: F Test: ALKALINE PHOSPHATASE; Value: 96; Range: 45-117; Units: U/L; Status: F Test: BILIRUBIN,TOTAL; Value: 0.2; Range: 0.2-1.0; Units: MG/DL; Status: F Test: BILIRUBIN,DIRECT; Value: < 0.1; Range: 0.0-0.2; Units: MG/DL; Status: F Test: TOTAL PROTEIN; Value: 7.8; Range: 6.4-8.2; Units: GM/DL; Status: F Test: ALBUMIN; Value: 4.0; Range: 3.2-5.2; Units: GM/DL; Status: F Test: ALBUMIN/GLOBULIN RATIO; Value: 1.05; Range: 1.00-1.93; Status: F Lab Order: MED Profile; SPEC'M 07/31/16 21:04 Test: GLUCOSE, FASTING; Value: 90; Range: 70-105; Units: MG/DL; Status: F Test: BLOOD UREA NITROGEN; Value: 5; Range: 7-18; Abnormal: Below low normal; Units: MG/DL; Status: F Test: CREATININE FOR GFR; Value: 0.73; Range: 0.55-1.02; Units: MG/DL; Status: F Test: GLOMERULAR FILTRATION RATE; Value: > 60.0; Range: >58; Status: F Test: SODIUM LEVEL; Value: 145; Range: 136-145; Units: MEQ/L; Status: F Test: POTASSIUM SERUM; Value: 3.7; Range: 3.5-5.1; Units: MEQ/L; Status: F Test: CHLORIDE LEVEL; Value: 110; Range: 98-107; Abnormal: Above high normal; Units: MEQ/L; Status: F Test: CARBON DIOXIDE LEVEL; Value: 27; Range: 21-32; Units: MEQ/L; Status: F Test: ANION GAP; Value: 8; Range: 8-16; Units: MEQ/L; Status: F Test: CALCIUM LEVEL; Value: 8.6; Range: 8.5-10.1; Units: MG/DL; Status: F Test Note: ; Units are mL/min/1.73 m2 Chronic Kidney Disease Staging per NKF: Stage I & II GFR >=60 Normal to Mildly Decreased Stage III GFR 30-59 Moderately Decreased Stage IV GFR 15-29 Severely Decreased Stage V GFR <15 Very Little GFR Left ESRD GFR <15 on [facility]SE Lab Order: Salicylate Level; SPEC'M 07/31/16 21:04 Test: SALICYLATE LEVEL; Value: 2.8; Range: 5.0-30.0; Abnormal: Below low normal; Units: MG/DL; Status: F Lab Order: Thyroid Stimulating Hormone; SPEC'07/31/16 21:04 Test: THYROID STIMULATING HORMONE; Value: 2.410; Range: 0.358-3.740; Units: uIU/ML; Status: F Lab Order: ETHYL ALCOHOL (ETHANOL); SPEC'07/31/16 21:04 Test: ETHYL ALCOHOL (ETHANOL); Value: 0.194; Range: 0.000-0.010; Abnormal: Above high normal; Units: %; Status: F Radiology Order: Chest, 1 View Test: Chest, 1 View REASON FOR EXAMINATION: Chest Pain; Clinical: Chest pain .; ; Comparison: None .; ; Findings:; The mediastinum and cardiac silhouette are stable and within normal limits for; portable technique. The lung crane are clear without acute consolidation,; effusion, or pneumothorax. Skeletal structures are intact.; ; Impression:; Normal portable chest x-ray; ; ; Signed by; Prudencio Olivier MD 08/01/2016 07:58 A; Radiology Order: EKG-ADULT Test: EKG-ADULT REASON FOR EXAMINATION: Chest Pain; Stationary ECG Study; [facility] - ED; ; Test Date: 2016-07-31; Pat Name: KODAK ARITA Department:; Room: -; Gender: F Home Health Caregiver: lm; : 1975 Requested By: YUDY Estes; Order Number: [id number] Reading MD: Latia Abbott; Measurements; Intervals [place]; Rate: 89 P: 58; MA: 129 QRS: 29; QRSD: 90 T: 48; QT: 343; QTc: 419; Interpretive Statements; SINUS RHYTHM; NO PRIOR FOR COMPARISON; Electronically Signed On 08-02-2016 7:15:24 EST by Latia Abbott; Radiology Order: CT Head Without Contrast Test: CT Head Without Contrast REASON FOR EXAMINATION: fall, ams; ; HISTORY: Trauma; TECHNIQUE:; -CT head: Axial CT; -CT C-spine: Contiguous noncontrast transaxial 2.[address] images were obtained through the cervical sp; ine. Reconstructions were then created in the axial plane at 1.25 mm from which reformations were gen; erated in the coronal and sagittal planes.; COMPARISON: None; FINDINGS:; CT head:; No acute intracranial hemorrhage or evidence of acute transcortical ischemia. No intra-axial or extra; ction fluid collection, subfalcine herniation, midline shift, or hydrocephalus.; The posterior fossa and brainstem are within normal limits. The osseous structures are intact. The pa; ranasal sinuses, mastoid air cells, orbital compartments, and extra cranial soft tissues are unremark; able.; CT C-spine:; No acute fracture, dislocation, or suspicious lesion.; No evidence of significant arthritis and alignment is maintained without spondylolisthesis. There are; no significant disc herniations or evidence of canal stenosis. The foramina, vertebral body, and dis; c space heights are preserved. Odontoid process is intact.; The neck soft tissues and airways are unremarkable with no hematoma or swelling.; ; IMPRESSION:; No acute intracranial or C-spine injury.; ; Radiology Order: CT Spine,Cervical W/o Contrast Test: CT Spine,Cervical W/o Contrast REASON FOR EXAMINATION: fall; ; HISTORY: Trauma; TECHNIQUE:; -CT head: Axial CT; -CT C-spine: Contiguous noncontrast transaxial 2.[address] images were obtained through the cervical sp; ine. Reconstructions were then created in the axial plane at 1.25 mm from which reformations were gen; erated in the coronal and sagittal planes.; COMPARISON: None; FINDINGS:; CT head:; No acute intracranial hemorrhage or evidence of acute transcortical ischemia. No intra-axial or extra; ction fluid collection, subfalcine herniation, midline shift, or hydrocephalus.; The posterior fossa and brainstem are within normal limits. The osseous structures are intact. The pa; ranasal sinuses, mastoid air cells, orbital compartments, and extra cranial soft tissues are unremark; able.; CT C-spine:; No acute fracture, dislocation, or suspicious lesion.; No evidence of significant arthritis and alignment is maintained without spondylolisthesis. There are; no significant disc herniations or evidence of canal stenosis. The foramina, vertebral body, and dis; c space heights are preserved. Odontoid process is intact.; The neck soft tissues and airways are unremarkable with no hematoma or swelling.; ; IMPRESSION:; No acute intracranial or C-spine injury.; ; Radiology Order: Elbow, (AP\E\Lat) Test: Elbow, (AP\E\Lat) REASON FOR EXAMINATION: forearm/elbow pain ; Clinical: Pain.; ; Technique: AP and lateral views of the right elbow.; ; Findings:; No acute fracture dislocation. Skeletal structures and joint spaces are normal.; Surrounding soft tissues are unremarkable.; ; Impression:; No acute fracture or dislocation; ; ; Signed by; Prudencio Olivier MD 08/01/2016 08:02 A; Radiology Order: Shoulder (1 View) Test: Shoulder (1 View) REASON FOR EXAMINATION: shoulder pain; Clinical: Pain .; ; Technique: Single AP view of the right shoulder.; ; Findings:; No acute fracture or dislocation identified. The acromioclavicular and; glenohumeral joints are intact in the single AP projection. No periarticular; calcifications or degenerative changes are appreciated. Surrounding soft tissues; are unremarkable.; ; Impression:; No obvious acute fracture dislocation.; ; ; Signed by; Prudencio Olivier MD 08/01/2016 08:00 A; Radiology Order: Spine. Lumbosacral, Complete Test: Spine. Lumbosacral, Complete REASON FOR EXAMINATION: fall, back pain; Clinical: Trauma/fall with back pain .; ; Technique: AP, lateral, bilateral oblique, and coned-down views.; ; Findings: Alignment and lordosis is maintained. The vertebral bodies including; transverse process and spinous processes are intact and normal for age. There is; no evidence for acute fracture / compression injury or subluxation. No evidence; for spondylolysis or spondylolisthesis.; ; Impression:; Mild age-related changes. No acute fracture / compression injury or; subluxation.; ; ; Signed by; Prudencio Olivier MD 08/01/2016 07:57 A; Outcome: 07/31 23:59 Discharge ordered by Provider. fg 08/01 00:37 Discharge Assessment: Patient awake, alert and oriented x 3. No cognitive and/or dsf functional deficits noted. Patient verbalized understanding of disposition instructions. patient administered narcotics - no. The following High Risk Discharge criteria are identified: None. Discharged to home via wheelchair, with son. Condition: stable. Discharge instructions given to patient, son Instructed on discharge instructions, follow up and referral plans. medication usage, Demonstrated understanding of instructions, medications, Pt was receptive of discharge instructions/ teaching. Prescriptions given X 1. CT Study completed. Property sent home with patient. 00:40 Patient left the ED. dsf Signatures: Dispatcher [employer] EDMS Kimberly Mishra, Abraham Reg Mary Yusuf, Instrument Sterilizer Unit ml3 Palak Lee Destiny, CHAR HOUSE SUPERVISOR CHAR HOUSE SUPERVISOR Ashley Jefferson RN RN dsf Yudy Farrell MD MD fg Nichols, Crystal, CHAR HOUSE SUPERVISOR CHAR HOUSE SUPERVISOR cln Familetti-Duy,Hilaria,RN RN cf2 Chart Complete MTDD
--- NOTE | 2016-08-03 01:41 | EDDOCDS ---
Physician Documentation [facility] Name: Genia Arita Age: 40 yrs Sex: Female : 1975 Arrival Date: 07/31/2016 Time: 20:46 Bed 3 Private MD: Disposition: 07/31/16 23:59 Discharged to Home/Self Care. Impression: Epilepsy and recurrent seizures, Fall (on) (from) unspecified stairs and steps. - Condition is Stable. - Prescriptions for Keppra 500 mg Oral Tablet - take 1 tablet by ORAL route every 12 hours; 20 tablet. - Medication Reconciliation, Local Pharmacy Hours form. - Follow up: Abbie Jack MD; When: Call to arrange an appointment; Reason: Continuance of care. - Problem is chronic. - Symptoms are unchanged. Historical: - Allergies: Cipro PO; Codeine Sulfate; SULFA (SULFONAMIDES); - Home Meds: 1. none - PMHx: Migraine Headaches; Seizure Disorder; - PSHx: Gall Bladder Removal; - Social history: Smoking status: Patient uses tobacco products, current every day smoker. No barriers to communication noted, The patient speaks fluent Yi, Speaks appropriately for age. - Family history: Not pertinent. - : The pt / caregiver states he / she is not on anticoagulants. Home medication list is obtained from. - Exposure Risk Screening:: None identified. 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 0 in. (152.40 cm) (R); Pain 7/10; 20:55 Pulse 119 MON; Pulse Ox 92% ; dsf 21:00 BP 96 / 66 (auto/); dsf 21:01 Pulse 93 MON; Pulse Ox 97% ; dsf 21:15 BP 117 / 75 (auto/); dsf 21:16 Pulse 90 MON; Pulse Ox 98% ; dsf 21:45 BP 125 / 88 (auto/); dsf 21:46 Pulse 113 MON; Pulse Ox 93% ; dsf 22:00 BP 114 / 77 (auto/); dsf 22:01 Pulse 88 MON; Pulse Ox 97% ; dsf 22:15 BP 99 / 63 (auto/); dsf 22:15 Pulse 106 MON; Pulse Ox 96% ; dsf 22:30 BP 107 / 69 (auto/); dsf 22:31 Pulse 90 MON; Pulse Ox 99% ; dsf 22:57 BP 86 / 53 (auto/); dsf 22:58 Pulse 74 MON; Pulse Ox 95% ; dsf 23:07 BP 90 / 53 (auto/); dsf 23:08 Pulse 72 MON; Pulse Ox 97% ; dsf 23:12 BP 90 / 54 (auto/); dsf 23:12 Pulse 77 MON; Pulse Ox 96% ; dsf 08/01 00:21 BP 88 / 60; Pulse 75; Resp 18; Temp 96.9(TE); Pulse Ox 98% on R/A; shyam 00:32 BP 98 / 61; shyam 07/31 20:55 Body Mass Index 29.29 (68.04 kg, 152.40 cm) cln 07/31 23:07 Dr. Farrell notified of BP dsf 08/01 00:21 RN aware of BP. PT is sounds asleep on stretcher laying on right side shyam MDM: 07/31 20:59 Logistics Program Manager/Pulse Ox/q 15 min VS ordered. fg 20:59 IV Saline Lock ordered. fg 20:59 Oxygen at 4L/Min NC or Home dosage ordered. fg 20:59 Rhythm Strip to chart ordered. fg 21:00 Acetaminophen Level Ordered. EDMS 21:00 CBC with Diff Ordered. EDMS 21:00 Drug Eval Toxicology ED Only Ordered. EDMS 21:00 Liver Profile Ordered. EDMS 21:00 MED Profile Ordered. EDMS 21:00 Salicylate Level Ordered. EDMS 21:00 Thyroid Stimulating Hormone Ordered. EDMS 21:00 Urinalysis Ordered. EDMS 21:00 Chest, 1 View Ordered. EDMS 21:00 ECG WITH READING ER PHYS+CARDIAG ordered. EDMS 21:04 CT Head Without Contrast Ordered. EDMS 21:04 CT Spine,Cervical W/o Contrast Ordered. EDMS 21:07 ETHYL ALCOHOL (ETHANOL) Ordered. EDMS 21:47 levETIRAcetam (20mg/kg) 1000 mg IVPB at 400 mL/hr once over 15 mins; dilute in 100mL NS fg or D5W ordered. 21:47 LORazepam 0.5 mg IVP once ordered. fg 21:47 Ondansetron 4 mg IVP once ordered. fg 21:48 ketorolac 30 mg IVP once ordered. fg 21:48 Elbow, (AP\E\Lat) Ordered. EDMS 21:48 Shoulder (1 View) Ordered. EDMS 21:48 Spine. Lumbosacral, Complete Ordered. EDMS 22:39 Financial registration complete. zo 22:50 [facility] Payment Agreement was scanned into [employer] and attached to record. zo 23:11 NS 0.9% 1000 ml IV at bolus once ordered. fg 08/01 11:06 T-Sheet-- Draft Copy was scanned into [employer] and attached to record. gb 11:06 ECG/EKG was scanned into [employer] and attached to record. gb 11:07 Radiology Report was scanned into [employer] and attached to record. gb 11:07 PCR was scanned into [employer] and attached to record. gb Administered Medications: 07/31 21:48 Drug: Ondansetron 4 mg [ondansetron HCl 2 mg/mL intravenous solution (2 mL)] Route: cf2 IVP; Site: left antecubital; 22:08 Drug: levETIRAcetam (20mg/kg) 1000 mg [levetiracetam 500 mg/5 mL intravenous solution] dsf Route: IVPB; Rate: 400 mL/hr; Infused Over: 15 mins; Site: right hand; 22:34 Follow up: IV Status: Completed infusion; IV Intake: 100ml dsf 22:08 Drug: LORazepam 0.5 mg [lorazepam 2 mg/mL injection solution (0.25 mL)] Route: IVP; dsf Site: right hand; 22:08 Drug: ketorolac 30 mg [ketorolac 30 mg/mL (1 mL) injection solution (1 mL)] Route: IVP; dsf Site: right hand; 23:14 Drug: NS 0.9% 1000 ml [sodium chloride 0.9 % injection solution] Route: IV; Rate: dsf bolus; Site: right hand; 08/01 00:39 Follow up: IV Status: Infusion discontinued; IV Intake: 800ml dsf Signatures: Dispatcher [employer] EDKimberly Barclay Reg Reg gb Olin, Zoeann zo Fuller, Desiree,RN RN dsf Yudy Farrell MD MD fg Mica, Hilaria FENTON cf2 The chart was reviewed and I authenticate all verbal orders and agree with the evaluation and treatment provided.Corrections: (The following items were deleted from the chart) 07/31 21:02 20:59 Accucheck ordered. fg dsf 21: 21:03 ETHYL ALCOHOL (ETHANOL)+LAB ordered. EDMS EDMS Attachments: 22:50 [facility] Payment Agreement zo 08/01 11:06 T-Sheet-- Draft Copy :06 ECG/EKG Chart Complete MTDD
--- NOTE | 2016-08-03 01:41 | EDDOCDS ---
Physician Documentation [facility] Name: Genia Arita Age: 40 yrs Sex: Female : 1975 Arrival Date: 07/31/2016 Time: 20:46 Bed 3 Private MD: Disposition: 07/31/16 23:59 Discharged to Home/Self Care. Impression: Epilepsy and recurrent seizures, Fall (on) (from) unspecified stairs and steps. - Condition is Stable. - Prescriptions for Keppra 500 mg Oral Tablet - take 1 tablet by ORAL route every 12 hours; 20 tablet. - Medication Reconciliation, Local Pharmacy Hours form. - Follow up: Abbie Jack MD; When: Call to arrange an appointment; Reason: Continuance of care. - Problem is chronic. - Symptoms are unchanged. Historical: - Allergies: Cipro PO; Codeine Sulfate; SULFA (SULFONAMIDES); - Home Meds: 1. none - PMHx: Migraine Headaches; Seizure Disorder; - PSHx: Gall Bladder Removal; - Social history: Smoking status: Patient uses tobacco products, current every day smoker. No barriers to communication noted, The patient speaks fluent Indonesian, Speaks appropriately for age. - Family history: Not pertinent. - : The pt / caregiver states he / she is not on anticoagulants. Home medication list is obtained from. - Exposure Risk Screening:: None identified. 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 0 in. (152.40 cm) (R); Pain 7/10; 20:55 Pulse 119 MON; Pulse Ox 92% ; dsf 21:00 BP 96 / 66 (auto/); dsf 21:01 Pulse 93 MON; Pulse Ox 97% ; dsf 21:15 BP 117 / 75 (auto/); dsf 21:16 Pulse 90 MON; Pulse Ox 98% ; dsf 21:45 BP 125 / 88 (auto/); dsf 21:46 Pulse 113 MON; Pulse Ox 93% ; dsf 22:00 BP 114 / 77 (auto/); dsf 22:01 Pulse 88 MON; Pulse Ox 97% ; dsf 22:15 BP 99 / 63 (auto/); dsf 22:15 Pulse 106 MON; Pulse Ox 96% ; dsf 22:30 BP 107 / 69 (auto/); dsf 22:31 Pulse 90 MON; Pulse Ox 99% ; dsf 22:57 BP 86 / 53 (auto/); dsf 22:58 Pulse 74 MON; Pulse Ox 95% ; dsf 23:07 BP 90 / 53 (auto/); dsf 23:08 Pulse 72 MON; Pulse Ox 97% ; dsf 23:12 BP 90 / 54 (auto/); dsf 23:12 Pulse 77 MON; Pulse Ox 96% ; dsf 08/01 00:21 BP 88 / 60; Pulse 75; Resp 18; Temp 96.9(TE); Pulse Ox 98% on R/A; shyam 00:32 BP 98 / 61; shyam 07/31 20:55 Body Mass Index 29.29 (68.04 kg, 152.40 cm) cln 07/31 23:07 Dr. Farrell notified of BP dsf 08/01 00:21 RN aware of BP. PT is sounds asleep on stretcher laying on right side shyam MDM: 07/31 20:59 Site Damage Prevention Technician/Pulse Ox/q 15 min VS ordered. fg 20:59 IV Saline Lock ordered. fg 20:59 Oxygen at 4L/Min NC or Home dosage ordered. fg 20:59 Rhythm Strip to chart ordered. fg 21:00 Acetaminophen Level Ordered. EDMS 21:00 CBC with Diff Ordered. EDMS 21:00 Drug Eval Toxicology ED Only Ordered. EDMS 21:00 Liver Profile Ordered. EDMS 21:00 MED Profile Ordered. EDMS 21:00 Salicylate Level Ordered. EDMS 21:00 Thyroid Stimulating Hormone Ordered. EDMS 21:00 Urinalysis Ordered. EDMS 21:00 Chest, 1 View Ordered. EDMS 21:00 ECG WITH READING ER PHYS+CARDIAG ordered. EDMS 21:04 CT Head Without Contrast Ordered. EDMS 21:04 CT Spine,Cervical W/o Contrast Ordered. EDMS 21:07 ETHYL ALCOHOL (ETHANOL) Ordered. EDMS 21:47 levETIRAcetam (20mg/kg) 1000 mg IVPB at 400 mL/hr once over 15 mins; dilute in 100mL NS fg or D5W ordered. 21:47 LORazepam 0.5 mg IVP once ordered. fg 21:47 Ondansetron 4 mg IVP once ordered. fg 21:48 ketorolac 30 mg IVP once ordered. fg 21:48 Elbow, (AP\E\Lat) Ordered. EDMS 21:48 Shoulder (1 View) Ordered. EDMS 21:48 Spine. Lumbosacral, Complete Ordered. EDMS 22:39 Financial registration complete. zo 22:50 [facility] Payment Agreement was scanned into [employer] and attached to record. zo 23:11 NS 0.9% 1000 ml IV at bolus once ordered. fg 08/01 11:06 T-Sheet-- Draft Copy was scanned into [employer] and attached to record. gb 11:06 ECG/EKG was scanned into [employer] and attached to record. gb 11:07 Radiology Report was scanned into [employer] and attached to record. gb 11:07 PCR was scanned into [employer] and attached to record. gb Administered Medications: 07/31 21:48 Drug: Ondansetron 4 mg [ondansetron HCl 2 mg/mL intravenous solution (2 mL)] Route: cf2 IVP; Site: left antecubital; 22:08 Drug: levETIRAcetam (20mg/kg) 1000 mg [levetiracetam 500 mg/5 mL intravenous solution] dsf Route: IVPB; Rate: 400 mL/hr; Infused Over: 15 mins; Site: right hand; 22:34 Follow up: IV Status: Completed infusion; IV Intake: 100ml dsf 22:08 Drug: LORazepam 0.5 mg [lorazepam 2 mg/mL injection solution (0.25 mL)] Route: IVP; dsf Site: right hand; 22:08 Drug: ketorolac 30 mg [ketorolac 30 mg/mL (1 mL) injection solution (1 mL)] Route: IVP; dsf Site: right hand; 23:14 Drug: NS 0.9% 1000 ml [sodium chloride 0.9 % injection solution] Route: IV; Rate: dsf bolus; Site: right hand; 08/01 00:39 Follow up: IV Status: Infusion discontinued; IV Intake: 800ml dsf Signatures: Dispatcher [employer] EDKimberly Barclay Reg Reg gb Olin, Zoeann zo Fuller, Desiree,RN RN dsf Yudy Farrell MD MD fg Mica, Hilaria FENTON cf2 The chart was reviewed and I authenticate all verbal orders and agree with the evaluation and treatment provided.Corrections: (The following items were deleted from the chart) 07/31 21:02 20:59 Accucheck ordered. fg dsf 21: 21:03 ETHYL ALCOHOL (ETHANOL)+LAB ordered. EDMS EDMS Attachments: 22:50 [facility] [place] Payment Agreement zo 08/01 11:06 T-Sheet-- Draft Copy :06 ECG/EKG Chart Complete MTDD
== END 2016-08-01 00:40 | disposition home or self-care (01) ==
LOC: M ED 20:46
DX: G40.909 Epilepsy, unspecified, not intractable, without status epilepticus (principal); W19.XXXA Unspecified fall, initial encounter; Y92.9 Unspecified place or not applicable; Y93.9 Activity, unspecified; Y99.9 Unspecified external cause status; Z90.49 Acquired absence of other specified parts of digestive tract; Z72.0 Tobacco use; Z88.1 Allergy status to other antibiotic agents; Z88.5 Allergy status to narcotic agent; Z88.2 Allergy status to sulfonamides
CPT/HCPCS: 70450; 71010; 72110; 72125; 73020; 73070; 80048; 80076; 84443; 85025; 93005; 93041; 96361; 96365; 96375; 99285; G0480; J1885; J1953; J2060; J2405